=== PATIENT | male | born 1945 | race Caucasian/White ===

== ENCOUNTER → 2019-07-31 15:42 | Outpatient (CLI) | payer BC ==
[~2019-07-31 15:42] MED LIST: BAYER CHEWABLE81 MG PO; COLESTID1 GM PO; LEXAPRO20 MG PO; NORVASC5 MG PO; SYNTHROID75 MCG PO; ULTRAM50 MG PO
[2019-08-02 07:01] VITALS: BMI 25.9
== END | disposition home or self-care (01) ==
LOC: D.RAD 15:42
PROVIDERS: ATTEND Urology
DX: N20.0 Calculus of kidney (principal)

== ENCOUNTER 2019-08-02 06:56 | Day surgery (SDC) | payer BC ==
[~2019-08-02] VITALS: Ht 175.3 cm; Wt 79.5 kg
[2019-08-02 07:01] VITALS: BP 149/79; Ht 175.3 cm; Wt 79.5 kg
[2019-08-02] MEDS ORDERED: ULTRAM50 MG PO (07:02)
[2019-08-02] MEDS ORDERED: BAYER CHEWABLE81 MG PO (07:03)
[2019-08-02] MEDS ORDERED: COLESTID1 GM PO (07:03)
[2019-08-02] MEDS ORDERED: LEXAPRO20 MG PO (07:03)
[2019-08-02] MEDS ORDERED: SYNTHROID75 MCG PO (07:03)
[2019-08-02] MEDS ORDERED: NORVASC5 MG PO (07:04)
[2019-08-02 07:46] LABS: BASOPHILS 0.6 % (0-2); EOSINOPHILS 2.1 % (0-7); HEMATOCRIT 40.4 % (42.0-54.0); HEMOGLOBIN 13.5 g/dL (13.5-17.5); IMMATURE GRANULOCYTES 0.3 % (0-5); LYMPHOCYTES 16.3 % (15-50); MCH 28.9 pg (26.0-34.0); MCHC 33.4 g/dL (31.0-37.0); MCV 86.5 fL (80.0-100.0); MEAN PLATELET VOLUME 9.1 fL (7.4-10.4); MONOCYTES 6.1 % (2-11); NEUTROPHILS 74.6 % (40-80); PLATELET COUNT 192 10x3/uL (130-400); RBC 4.67 10x6/uL (4.20-6.10); RDW 13.4 % (11.5-14.5); WBC 6.6 10x3/uL (4.8-10.8)
[2019-08-02 07:53] LABS: ANION GAP 11.4 mmol/L (8-16); CALCIUM 9.3 mg/dL (8.5-10.1); CARBON DIOXIDE 28.7 mmol/L (21.0-32.0); CREATININE - SERUM 1.4 mg/dL (0.6-1.3); POTASSIUM - SERUM 4.1 mmol/L (3.5-5.1)
[2019-08-02 08:00] LABS: ALBUMIN 4.4 g/dL (3.4-5.0); BILIRUBIN - TOTAL 0.8 mg/dL (0.2-1.3); PROTEIN - SERUM 7.7 g/dL (6.4-8.2)
--- NOTE | 2019-08-02 09:32 | NUR ---
0925 PATIENT AROUSABLE, OPA DISCONTINUED. MAINTAINING SELF PATENT AIRWAY
--- NOTE | 2019-08-02 13:37 | OP ---
PATIENT NAME: FLORY NINA MEDICAL RECORD: [id number] :47 LOCATION:D.OPS ADMISSION DATE: SURGEON: BRITTNEE SHEEHAN MD DATE OF OPERATION: 08/02/2019 SURGEON: Brittnee Sheehan MD ANESTHESIA: General anesthesia by Jed Curtis CRNA DIAGNOSIS: Left proximal ureteral stone, 4 mm. PROCEDURES: Cystoscopy, left ureteroscopy and stone extraction, left ureteral stent insertion 6-Indonesian x 26 cm with string attached. SPECIMEN: Left proximal ureteral stone. BLOOD LOSS: None. CLINICAL HISTORY: This is a 74-year-old male, who came to the Emergency Room at [facility] with acute left flank pain. A CT scan done at [facility] showed a proximal ureteral 4mm stone and some stones in the right kidney, which were nonobstructive. The stone in the right kidney is 6 mm in size. He was taking Plavix until he saw me in the clinic. We therefore could not really do any procedures on him. We had planned to do lithotripsy on the right-sided kidney stone. When he saw me in the office, he did not have any acute pain. I had sent him for a KUB and the stone was not readily visible on the left side on the KUB. The right-sided stone was visible. Overnight, he called me at 2:00 a.m. with acute left flank pain. I have referred him to the Emergency Room. We will proceed with ureteroscopy and stone extraction. He has held his Plavix now for about 4 days. He was given Ancef infection prevention coordinator to the OR. DESCRIPTION OF PROCEDURE: The patient was given induction of general anesthesia in supine position. He was then placed into the lithotomy position and prepped and draped. A 21-Indonesian cystoscope with 30-degree lens was used for visualization. Prostatic lobes are somewhat enlarged, but not highly obstructive. There are no bladder tumors seen. There were single ureteral orifices as seen on each side. Under fluoroscopy, I could see a radiodensity at the level of the L3 vertebral body on the left side which may correspond to the stone. We passed a Sensor wire up into the left ureteral orifice and the wire went beside this radiodensity confirming its presence of the stone. The left ureteral orifice was dilated using an 18 Indonesian x 4 cm ureteral dilation balloon. This was inflated with 10 atmospheres of pressure for a few seconds and then the balloon was deflated and removed entirely. We then removed the cystoscope, leaving the wire in place. A Semi-rigid ureteroscope was then used. We followed the wire and we encountered the stone. A 0-tip 4-wire basket was placed around the stone. The stone was completely removed. We then switched back to the cystoscope. The wire was backloaded on to the cystoscope. Over the wire, we inserted a 6-Indonesian x 26 cm ureteral stent. Once the stent was in correct position, the wire was withdrawn entirely. The distal end of the stent was pushed into the bladder using a pusher. The bladder was then emptied through the cystoscope sheath and the scope was removed entirely. The string on the distal end of the stent is maintained. It hangs out of the urethra. It was tied to itself in a knot and cut shorter. The patient was awakened and brought to the recovery room. I will see the patient in [facility] next week to remove the stent. OPERATIVE REPORT [id number] [employer] TRANSINT:[id number] Voice Confirmation ID: [id number] DOCUMENT ID: [id number] BRITTNEE SHEEHAN MD at 1337 CC: [id number] DICTATION DATE: 08/02/19916 [facility] [employer] ADJUSTER: 08/02/19 1003 [facility] 08/02/19 [id number] [place] [address]
== END 2019-08-02 10:45 | disposition home or self-care (01) ==
LOC: D.ER 06:56 → D.OPS 06:56 → D.ER 07:59 → D.OPS 07:59 → EDSTATUS 09:30 → D.OPS 10:45
PROVIDERS: ATTEND Emergency Medicine
DX: N20.1 Calculus of ureter (principal); I71.4 Abdominal aortic aneurysm, without rupture; I10 Essential (primary) hypertension; E03.9 Hypothyroidism, unspecified; K21.9 Gastro-esophageal reflux disease without esophagitis